=== PATIENT | female | born 1995 | race Caucasian/White ===

== ENCOUNTER 2022-03-28 18:18 | Emergency (ER) | payer OTHER, SELFPAY ==
[2022-03-28 18:50] VITALS: BP 129/87; PULSE 90; RESP 16; TEMP 37.1; O2SAT 99; BMI 35.5
--- NOTE | 2022-03-28 19:23 | DI.US.S_ITS ---
PROCEDURE: US ABDOMEN LIMITED INDICATIONS: RUQ abd pain TECHNIQUE: Real-time focused scanning was performed of the abdomen, with image documentation. COMPARISON: None. FINDINGS: Liver is normal in size measuring 13.9 cm with mild appearance of steatosis. Gallbladder demonstrates a focus non mobile echogenicity at the neck measuring 13 x 8 mm. There are 2 additional foci of increased echogenicity, demonstrating mobility measuring 9 x 9 mm as well as 10 x 4 mm. Gallbladder wall thickness measures 2 mm. No pericholecystic fluid. Common bile duct measures 4.9 mm IMPRESSION: Cholelithiasis without imaging evidence of cholecystitis. There is an additional focus of non mobile echogenicity which could represent adherent stone, sludge or potential polyp. Dictated by: Sarai Cox M.D. on 03/28/2022 at 20:18 Approved by: Sarai Cox M.D. on 03/28/2022 at 20:20
--- NOTE | 2022-03-28 20:36 | ED_ITS ---
HPI - Abdominal Pain General Chief Complaint: Abdominal Pain Stated Complaint: RT. ABD. PAIN Time Seen by Provider: 03/28/22 20:35 Source: patient Mode of arrival: Ambulatory History of Present Illness HPI narrative: 26-year-old female nonsmoker without chronic medical history presents with her in the chief complaint of severe right upper quadrant pain over the course of the past day or 2. She states that she is had a somewhat decreased appetite and some episodes of nausea and vomiting over the course of the week as well. A week or 2 ago she had more classic upper respiratory symptoms with runny nose, nasal congestion and occasional cough, she also had some loose stools but seems to think that has resolved. She denies any history of the same. She states it seems to be worse when she moves and improves with rest. She has had no abdominal surgeries. Her last menstrual cycle was a few days ago. Related Data Previous Rx's Medication Instructions Recorded clotrimazole 1 % topical cream 1 gm topical BID ##14.1 02/19/17 amoxicillin 875 mg-potassium 875 mg PO BID #20 tabs 04/13/17 clavulanate 125 mg tablet (Augmentin) hydrocodone 5 mg-acetaminophen 325 1 tab PO Q4-6H PRN pain #10 tabs 03/28/22 mg tablet ondansetron 4 mg disintegrating 4 mg PO TID-QID PRN nausea and 03/28/22 tablet vomiting #10 tabs Allergies Allergy/AdvReac Type Severity Reaction Status Date / Time iodine [IODINE] Allergy Unknown Verified 03/28/22 20:46 venom-honey bee Allergy Unknown Verified 03/28/22 20:46 [bee venom (honey bee)] Review of Systems Review of Systems Narrative: GENERAL: Denies chills, fatigue, malaise, fever, sweats. HEENT: Denies sinus pain, ear pain, sore throat, difficulty swallowing, dizziness. RESPIRATORY: Denies dyspnea, cough, wheezing, hemoptysis, sputum. CARDIOVASCULAR: Denies chest pain, palpitations, orthopnea, edema, GASTROINTESTINAL: See HPI : Denies dysuria, frequency, incontinence, hematuria, urinary retention. MUSCULOSKELETAL: denies weakness, joint pain, or bony pain SKIN: Denies rash, skin lesions, or other NEUROLOGIC: Denies weakness, headache, numbness, change in speech, confusion, seizures, incoordination. PSYCHIATRIC: No concerning psychosocial issues. 12 point review of systems is negative except for those stated above Patient History Social History Smoking Status: Never smoker Smoking Status: Never smoker Substance Use Type: does not use Exam Narrative Exam Narrative: GENERAL: [26] year old patient appears stated age. Well-developed patient, in mild distress. HEAD: Atraumatic. Normocephalic. EYES: Pupils equal round and reactive. Extraocular motions intact. No scleral icterus. No injection or drainage. ENT: Nose without bleeding, purulent drainage. Throat without erythema, tonsillar hypertrophy or exudate. Airway patent. NECK: Trachea midline. Non tender CARDIOVASCULAR: Regular rate and rhythm without murmurs, gallops, or rubs. RESPIRATORY: Clear to auscultation. Breath sounds equal bilaterally. No wheezes, rales, or rhonchi. GASTROINTESTINAL: Abdomen soft, tender in the epigastrium and more so in the right upper quadrant, nondistended. Bowel sounds present EXTREMITIES: No edema or joint tenderness. BACK: Nontender without deformity or crepitance. No flank tenderness. NEURO: AOx3. SKIN: No rash or erythema of visible areas Initial Vital Signs Initial Vital Signs: Vital Signs Temperature 98.8 F 03/28/22 18:50 Pulse Rate 90 03/28/22 18:50 Respiratory Rate 16 03/28/22 18:50 Blood Pressure 129/87 03/28/22 18:50 Pulse Oximetry 99 03/28/22 18:50 Oxygen Delivery Method 03/28/22 18:50 Course Orders Ordered: Discontinued Medications Hydrocodone Bitart/Acetaminophen (Hydrocodone/Acet 5/325 Prepack) 1 bottle MISC SEEINSTR ONE Stop: 03/28/22 22:39 Last Admin: 03/28/22 22:48 Dose: 1 bottle Documented By: ESTEFANÍA Sodium Chloride (Normal Saline 0.9%) 1,000 mls @ 1,000 mls/hr IV BOLUS ONE Stop: 03/28/22 21:42 Last Infusion: 03/28/22 22:38 Dose: 0 mls/hr Documented By: Admin: 03/28/22 21:08 Dose: 1,000 mls/hr Documented By: ESTEFANÍA Ondansetron HCl (Ondansetron 4 Mg/2 Ml Inj) 4 mg IV NOW ONE Stop: 03/28/22 20:44 Last Admin: 03/28/22 21:08 Dose: 4 mg Documented By: ESTEFANÍA Ondansetron HCl (Ondansetron 4 Mg Odt Prepack) 1 bottle MISC SEEINSTR ONE Stop: 03/28/22 22:39 Last Admin: 03/28/22 22:48 Dose: 1 bottle Documented By: ESTEFANÍA Pantoprazole Sodium (Pantoprazole 40 Mg Vial) 40 mg IV NOW ONE Stop: 03/28/22 20:44 Last Admin: 03/28/22 21:08 Dose: 40 mg Documented By: ESTEFANÍA Vital Signs Vital signs: Vital Signs - 8 hr 03/28/22 18:50 Temperature 98.8 F Pulse Rate 90 Respiratory Rate 16 Blood Pressure 129/87 Pulse Oximetry 99 Oxygen Delivery Method Room Air MDM - Abdominal Pain Lab Data Result diagrams: 03/28/22 20:56 03/28/22 20:56 Labs: Lab Results 03/28/22 03/28/22 03/28/22 Range/Units 20:30 20:56 20:56 WBC 6.8 (4.5-11.0) X10^3/uL RBC 5.30 H (4.0-5.2) X10^6/uL Hgb 15.2 (12.0-16.0) g/dL Hct 44.9 (36-46) % MCV 84.7 (80-100) fL MCH 28.7 (26-34) PG MCHC 33.8 (30-36) % RDW 13.4 (11.6-14.8) % Plt Count 408 H (150-400) X10^3/uL Neut % (Auto) 41.3 L (50-75) % Lymph % (Auto) 43.2 H (25-40) % [place] % (Auto) 10.6 (3-14) % Eos % (Auto) 3.9 (2-4) % Baso % (Auto) 1.0 (0-2) % Neut # (Auto) 2800 (2917-1357) /uL Lymph # (Auto) 2900 (0706-5717) /uL [place] # (Auto) 700 (0-900) /uL Eos # (Auto) 300 (0-450) /uL Baso # (Auto) 100 (0-100) /uL Sodium 141 (137-145) mmol/L Potassium 4.0 (3.4-5.1) mmol/L Chloride 107 (98-107) mmol/L Carbon Dioxide 22 (22-32) mmol/L BUN 7 (7-17) mg/dL Creatinine 0.71 (0.52-1.04) mg/dL Estimated GFR > 60 (>60) mL/min BUN/Creatinine Ratio 9.9 (6-22) Glucose 91 (70-100) mg/dL Calcium 8.9 (8.4-10.2) mg/dL Total Bilirubin 0.5 (0.2-1.3) mg/dL AST 26 (14-36) IU/L ALT 40 H (<35) IU/L Alkaline Phosphatase 56 (38-126) U/L Total Protein 8.2 (6.3-8.2) g/dL Albumin 4.3 (3.5-5.0) g/dL Globulin 3.9 (1.7-4.1) g/dL Albumin/Globulin Ratio 1.1 (1.0-2.8) Lipase 68 (23-300) U/L Urine RBC 0-1/hpf (0-5/HPF) Urine WBC None seen (0-5/HPF) Ur Squamous Epith Cells 1-5 /hpf (0-5/HPF) Calcium Oxalate Crystal Few H Urine Bacteria Few (2-10) H (None) Ur Culture Indicated? Cult not indicated Point of care testing: Point of Care Testing Test Results Negative Urine Dip Bedside Urine Glucose Negative Bedside Urine Bilirubin - Negative Bedside Urine Ketone - Negative Urine Specific [place] 1.030 Bedside Urine Occult Blood +++ Bedside Urine pH 5.5 Bedside Urine Protein - Negative Bedside Urine Urobilinogen - Negative Bedside Urine Nitrite - Negative Bedside Urine Leukocytes - Negative Esterase Imaging Data US - abdomen: Radiologist's Impression: [address] [address] Ultrasound Report Signed Patient: Tory Harvey MR#: [id number] : 1995 Acct:[id number] Age/Sex: 26 / F Date of Service: 03/28/22 Loc: ED Accession Number: [id number] ?? Procedure: US abdomen limited Ordering Provider: Maribel Brown D.O. PROCEDURE: US ABDOMEN LIMITED ? INDICATIONS:? RUQ abd pain ? TECHNIQUE:? Real-time focused scanning was performed of the abdomen, with image documentation.? ? COMPARISON:? None. ? FINDINGS:? Liver is normal in size measuring 13.9 cm with mild appearance of steatosis.? Gallbladder demonstrates a focus non mobile echogenicity at the neck measuring 13 x 8 mm. ?There are 2 additional foci of increased echogenicity, demonstrating mobility measuring 9 x 9 mm as well as 10 x 4 mm.? Gallbladder wall thickness measures 2 mm.? No pericholecystic fluid.? Common bile duct measures 4.9 mm? ? IMPRESSION:? ? Cholelithiasis without imaging evidence of cholecystitis.? There is an additional focus of non mobile echogenicity which could represent adherent stone, sludge or potential polyp.? ? ? Dictated by: Sarai Cox M.D. on 03/28/2022 at 20:18 ? ? Approved by: Sarai Cox M.D. on 03/28/2022 at 20:20 ? Discharge Plan Departure Patient Disposition: Home Clinical Impression: Gallbladder pain, Abdominal pain Instructions: DI for Abdominal Pain-Adult Activity Restrictions/Additional Instructions: *You have been diagnosed with [abdominal pain] * As we discussed your history and physical exam as well as labs and imaging are very reassuring. There is no evidence of any severe diagnoses that would require a specific or immediate intervention. *What to do: *Please continue to take your regular medications as directed. [x ] New medication prescriptions sent to your pharmacy: [ [facility] in [place]] *Please follow up with your primary care provider in 2-3 days, call for an appointment. Let them know you were seen in the Emergency Department and that we ask that you be seen in follow up. We will electronically transmit a record of today's note if your PCP is in our system *Please consider a clear liquid diet for the next 24-48 hours and then slowly advance to regular as tolerated. Also, try to avoid alcohol, nicotine, caffeine, spicy, acidic or fatty foods as this may worsen your symptoms *If you do not have a primary care provider please contact the [facility] Resource line at [phone]. They will ask some questions about your medical history and help get you set up with a doctor in the community. *Return to Emergency Department if you should have any new, worsening or concerning symptoms, such as [fever greater than 101 F, shaking chills, worsening pain, persistent vomiting or other bothersome symptoms] Prescriptions: New hydrocodone-acetaminophen 5-325 mg tablet 1 tab PO Q4-6H PRN (Reason: pain) Qty: 10 0RF ondansetron 4 mg tablet,disintegrating 4 mg PO TID-QID PRN (Reason: nausea and vomiting) Qty: 10 0RF No Action clotrimazole 1 % cream 1 gm Topical BID Qty: 14.1 0RF amoxicillin-pot clavulanate [Augmentin] 875 MG/125 MG tablet 875 mg PO BID Qty: 20 0RF Referrals: Nadine Greer MD [Physician] - Visit Report Forms: Patient Portal/API
[2022-03-28 21:05] LABS: Add Manual Diff / Slide Review NO; Basophils Absolute Auto 100 /uL (0-100); Eosinophils Absolute Auto 300 /uL (0-450); Eosinophils Percent Auto 3.9 % (2-4); Hematocrit 44.9 % (36-46); Hemoglobin 15.2 g/dL (12.0-16.0); Lymphocytes Absolute Auto 2900 /uL (1100-4500); Lymphocytes Percent Auto 43.2 % (25-40); Mean Corpuscular HGB Conc 33.8 % (30-36); Mean Corpuscular Hemoglobin 28.7 PG (26-34); Mean Corpuscular Volume 84.7 fL (80-100); Monocytes Absolute Auto 700 /uL (0-900); Monocytes Percent Auto 10.6 % (3-14); Neutrophils Absolute Auto 2800 /uL (1500-7000); Neutrophils Percent Auto 41.3 % (50-75); Platelet Count 408 X10^3/uL (150-400); Red Cell Distribution Width 13.4 % (11.6-14.8); White Blood Cell Count 6.8 X10^3/uL (4.5-11.0)
[2022-03-28] MEDS: SODIUM CHLORIDE 0.9% 1,000 ML 1000 ML IV (21:08)
[2022-03-28] MEDS: ONDANSETRON 4 MG/2 ML INJ IV (21:08)
[2022-03-28] MEDS: PANTOPRAZOLE 40 MG VIAL IV (21:08)
[2022-03-28 21:21] LABS: Bacteria Urine Few (2-10); Calcium Oxalate Crystals Urine Few; Culture Indicated Urine Cult Not Indicated; RBC Urine 0-1/HPF (0-5/HPF); Squamous Epithelial Cell Urine 1-5 /HPF (0-5/HPF); WBC Urine None Seen (0-5/HPF)
[2022-03-28 21:22] LABS: Alanine Aminotransferase 40 IU/L (<35); Albumin 4.3 g/dL (3.5-5.0); Albumin Globulin Ratio 1.1 (1.0-2.8); Alkaline Phosphatase 56 U/L (38-126); Aspartate Aminotransferase 26 IU/L (14-36); BUN Creatinine Ratio 9.9 (6-22); Bilirubin Total 0.5 mg/dL (0.2-1.3); Blood Urea Nitrogen 7 mg/dL (7-17); Calcium 8.9 mg/dL (8.4-10.2); Carbon Dioxide 22 mmol/L (22-32); Chloride 107 mmol/L (98-107); Estimated Glomerular Filt Rate > 60 mL/min (>60); Globulin 3.9 g/dL (1.7-4.1); Glucose 91 mg/dL (70-100); HEMOLYSIS 17 (0-50); Lipase 68 U/L (23-300); Sodium 141 mmol/L (137-145); Total Protein 8.2 g/dL (6.3-8.2)
--- NOTE | 2022-03-28 21:24 | DI.CT.S_ITS ---
PROCEDURE: CT KIDNEY URETER BLADDER (KUB) INDICATIONS: RUQ and R flank pain, hematuria, ca+ oxalate in urine TECHNIQUE: Axial sections were acquired from the lung bases to the pubic symphysis. Coronal and sagittal reformats were performed. For radiation dose reduction, the following was used: automated exposure control, adjustment of mA and/or kV according to patient size. COMPARISON: [facility], , US ABDOMEN LIMITED, 03/28/2022, 19:47. FINDINGS: Image quality: Excellent. Lung bases: Unremarkable. Heart: No significant findings. URINARY: Right Kidney: No stones or hydronephrosis. Right Ureter: No hydroureter. Left Kidney: No stones or hydronephrosis. Left Ureter: No hydroureter. Bladder: Normal wall thickness. No stones. ABDOMEN: Liver: Unremarkable. Gallbladder: Luminal stone is present without wall thickening, better appreciated recent ultrasound. Biliary ducts: Unremarkable. Pancreas: Unremarkable. Spleen: Unremarkable. Adrenal Glands: Unremarkable. Stomach and Bowel: Stomach, small bowel loops, and colon are unremarkable. Appendix is normal. Peritoneum: No abnormal intraperitoneal fluid. No free air. Ventral Wall: No hernia. Abdominal Nodes: No enlarged retroperitoneal or mesenteric lymph nodes. Vessels: Aorta and inferior vena cava are normal in size. PELVIS: Pelvic Organs: Unremarkable. Pelvic Nodes: Unremarkable. Miscellaneous: No inguinal hernias are seen. Bones: Unremarkable. IMPRESSION: No renal, ureteral or bladder calculi. Cholelithiasis without imaging evidence of cholecystitis. Dictated by: Sarai Cox M.D. on 03/28/2022 at 22:14 Approved by: Sarai Cox M.D. on 03/28/2022 at 22:15
[2022-03-28 21:35] VITALS: PULSE 81; O2SAT 99
[2022-03-28 21:36] VITALS: BP 111/65; PULSE 77; O2SAT 99
[2022-03-28 22:06] VITALS: PULSE 80; O2SAT 98
[2022-03-28 22:07] VITALS: BP 109/70; PULSE 73; O2SAT 98
[2022-03-28 22:30] VITALS: BP 106/64; PULSE 75; O2SAT 96
[2022-03-28] MEDS: ONDANSETRON 4 MG ODT PREPACK 1 BOTTLE MISC (22:48)
[2022-03-28] MEDS: HYDROCODONE/ACET 5/325 PREPACK 1 BOTTLE MISC (22:48)
== END 2022-03-28 22:54 | disposition home or self-care (01) ==
PROVIDERS: Emergency Provider Emergency Medicine; Family Provider Family Medicine
DX: K82.9 Disease of gallbladder, unspecified (principal); R10.10 Upper abdominal pain, unspecified; R11.2 Nausea with vomiting, unspecified
CPT/HCPCS: 36415; 74176; 76705; 80053; 81003; 81015; 81025; 83690; 85025; 93005; 96361; 96374; 96375; 99284; C9113; J2405

== ENCOUNTER 2022-05-13 12:17 | Day surgery (SDC) | payer OTHER, SELFPAY ==
[2022-05-11 07:48] VITALS: BMI 34.4
--- NOTE | 2022-05-13 | PATH_ITS ---
[facility] Accession Number: [id number] No. of containers..01 Tissue . 01 Material submitted: . gallbladder - GALLBLADDER . 01 Diagnosis: Gallbladder, Cholecystectomy: Cholelithiasis, cholesterolosis, and changes consistent with chronic cholecystitis. Negative for dysplasia and neoplasia. MRV 05/19/2022 1441 Local . 01 Electronically signed: . Nadine Mena MD, Pathologist NPI- [id number] . 01 Gross description: . The specimen is received in formalin labeled with the patient's name, , and gallbladder, and consists of an intact gallbladder measuring 6.2 x 2.4 x 2.1 cm. The serosa is smooth and congested. The hepatic surface is rough and unremarkable. The cystic duct is received closed with a clamp, is inked blue, and no pericystic lymph node is identified. The lumen is filled with dark green mucoid bile. Two yellow bossellated calculi are identified ranging from 1.0 cm to 1.5 cm in greatest dimension, not grossly obstructing the cystic duct. The mucosa is dark green and velvety with numerous pinpoint yellow areas of discoloration consistent with cholesterol. No polyps or lesions are identified. The patel average 0.3 cm thick. Watch Caser sections to include the cystic duct margin and full-thickness sections are submitted in cassette A1. ([id number]) /FRR 05/14/2022 1623 Local . 01 Pathologist provided ICD-10: K80.50 . 01 CPT . 812867 Specimen Comment: A courtesy copy of this report has been sent to [phone] Performed at: 01 [facility] [address] [place] [address], [place], [place] [id number] MD Chad Victor MD Phone: [phone]
[2022-05-13] MEDS: LACTATED RINGERS 1,000 ML 100 ML IV ×2 (12:50→15:02)
[2022-05-13 12:51] VITALS: BP 129/77; PULSE 84; RESP 16; TEMP 36.6; O2SAT 99; BMI 34.4
--- NOTE | 2022-05-13 13:51 | PM.PREOP ---
Pre-operative Note Interval Note History & Physical reviewed/Exam performed by Physician: Yes Changes to H&P: No
--- NOTE | 2022-05-13 13:51 | PM.OP.1 ---
Operative Date/Time/Diagnoses Date of procedure: 05/13/22 Time of procedure: 13:51 Pre-op diagnosis: Biliary colic Post-op diagnosis: same Procedure & Clinicians Procedure: Laparoscopic cholecystectomy Same procedure as scheduled: Yes Indications: 26-year-old woman with symptoms and radiographic findings consistent with biliary colic Surgeon: Adama Ferrer Anesthesia Type: General Operative Notes Findings: Cholelithiasis no evidence of acute cholecystitis. Critical view of safety established. Specimen(s): other (Gallbladder) Estimated Blood Loss (mL): 20 Procedure in detail: The patient was placed supine on the table and bilateral lower extremity compression devices were applied. Anesthesia was induced they were intubated with an endotracheal tube and received 2g of Ancef. A time-out was performed. They were prepped and draped in sterile fashion. An infraumbilical incision was made. The fascia was elevated incised and the abdomen was entered atraumatically. A blunt tip 12mm balloon trocar was then inserted, pneumoperitoneum was established and inspection of the abdomen demonstrated no evidence of injury. They were placed head up and right side up and then a 11 mm port was placed high in the epigastrium and two 5mm in the right upper quadrant. The gallbladder was grasped by the fundus and retracted over the liver and retracted laterally by the infundibulum. Using electrocautery the lateral plane between the gallbladder and the liver was opened towards the fundus. The gallbladder was then retracted laterally and the medial plane was developed in the same manner. With the gallbladder mobilized the bottom of the cystic plate was visualized. The hepatocystic triangle was meticulosly skeletonized with blunt dissection of fat and fibrous tissue from both the front and the back. Only two structures were then clearly seen entering the gallbladder the cystic duct and the cystic artery. With the critical view of safety fully established the cystic duct was clipped twice proximally and once distally using the 10 mm Weck hemoclip applied under direct visualization and then sharply divided. The cystic artery was divided in the same fashion. The gallbladder was removed from the liver bed using electro cautery. The liver bed was then inspected for hemostasis and this was achieved. The abdomen was irrigated with sterile saline and inspection was made that showed the clips in good position. The specimen was removed using Endo-Catch. The abdomen was desufflated. The umbilical fascia was closed with 0 Vicryl in a [id number] fashion under direct visualization. Skin incisions were irrigated and closed with 4-0 Monocryl. 30 ml of 0.25% bupivacaine was infiltrated into the subcutaneous tissue of the incisions. The wounds were sealed with Dermabond. Patient emerged from anesthesia was extubated and transferred to recovery in stable condition. The sponge and instrument count at the end of the operation was correct. Complications: none Post-operative Condition: stable Disposition: same day surgery
[2022-05-13] MEDS: CEFAZOLIN 2 GM/100 ML PREMIX 100 ML IV (14:28)
[2022-05-13] MEDS: BUPIVACAINE 0.5% W/ EPI (PF) 30 ML VIAL INJ (14:36)
--- NOTE | 2022-05-13 14:43 | SUR.OPER ---
Supine on padded OR bed, head on pillow, safety belt at thigh, left arm padded and tucked at side. Right arm secured on padded arm board <90 degrees abduction. Legs uncrossed. Padded footboard in place. Tape over blanket to secure lower legs. Pt positioned per direction and supervision of Dr Ferrer.
[2022-05-13 15:29] VITALS: BP 153/92; PULSE 121; RESP 22; TEMP 36.2; O2SAT 100
[2022-05-13 15:35] VITALS: BP 158/88; PULSE 108; RESP 18; O2SAT 100
[2022-05-13] MEDS: METOCLOPRAMIDE 10 MG/2 ML INJ IV (15:50)
[2022-05-13] MEDS: OXYCODONE IR 5 MG TABLET PO (15:58)
[2022-05-13 15:59] VITALS: BP 122/76; PULSE 66; RESP 12; TEMP 36.6; O2SAT 100
[2022-05-13 16:07] VITALS: BP 119/75; PULSE 66; RESP 12; TEMP 36.2; O2SAT 99
== END 2022-05-13 16:36 | disposition home or self-care (01) ==
PROVIDERS: Family Provider Family Medicine; PCP Family Medicine; Referring Provider Surgery; Visit Provider Surgery
PROC: 0FT44ZZ Resection of Gallbladder, Percutaneous Endoscopic Approach (ICD-10-PCS; CPT 47562; principal; 2022-05-13 14:00)
DX: K80.20 Calculus of gallbladder without cholecystitis without obstruction (principal)
CPT/HCPCS: 47562; 81025; 82962; J0330; J0690; J1170; J1885; J2250; J2405; J2704; J2765; J3010

== ENCOUNTER → 2022-10-28 10:48 | Outpatient (CLI) | payer OTHER, SELFPAY ==
[2022-10-28 11:23] LABS: Add Manual Diff / Slide Review NO; Basophils Absolute Auto 100 /uL (0-100); Eosinophils Absolute Auto 100 /uL (0-450); Hematocrit 42.6 % (36-46); Hemoglobin 14.6 g/dL (12.0-16.0); Lymphocytes Absolute Auto 1800 /uL (1100-4500); Lymphocytes Percent Auto 31.9 % (25-40); Mean Corpuscular HGB Conc 34.2 % (30-36); Mean Corpuscular Hemoglobin 29.3 PG (26-34); Mean Corpuscular Volume 85.6 fL (80-100); Monocytes Absolute Auto 400 /uL (0-900); Neutrophils Absolute Auto 3300 /uL (1500-7000); Neutrophils Percent Auto 59.1 % (50-75); Platelet Count 426 X10^3/uL (150-400); Red Blood Cell Count 4.98 X10^6/uL (4.0-5.2); Red Cell Distribution Width 13.5 % (11.6-14.8); White Blood Cell Count 5.6 X10^3/uL (4.5-11.0)
[2022-10-28 12:03] LABS: Alanine Aminotransferase 42 IU/L (<35); Albumin 4.6 g/dL (3.5-5.0); Albumin Globulin Ratio 1.2 (1.0-2.8); Alkaline Phosphatase 69 U/L (38-126); Aspartate Aminotransferase 35 IU/L (14-36); BUN Creatinine Ratio 10.6 (6-22); Bilirubin Total 1.1 mg/dL (0.2-1.3); Blood Urea Nitrogen 9 mg/dL (7-17); Calcium 9.1 mg/dL (8.4-10.2); Carbon Dioxide 26 mmol/L (22-32); Chloride 103 mmol/L (98-107); Estimated Glomerular Filt Rate > 60 mL/min (>60); Globulin 3.9 g/dL (1.7-4.1); Glucose 87 mg/dL (70-100); HEMOLYSIS < 15 (0-50); Potassium 4.1 mmol/L (3.4-5.1); Sodium 137 mmol/L (137-145); Total Protein 8.5 g/dL (6.3-8.2)
== END ==
PROVIDERS: Family Provider Family Medicine; PCP Family Medicine; Referring Provider Surgery; Visit Provider Surgery
DX: R10.9 Unspecified abdominal pain (principal)
CPT/HCPCS: 36415; 80053; 85025

== ENCOUNTER → 2022-11-02 15:35 | Outpatient (CLI) | payer OTHER, SELFPAY ==
--- NOTE | 2022-11-02 15:36 | DI.US.S_ITS ---
PROCEDURE: US ABDOMEN COMPLETE INDICATIONS: Abdominal pain TECHNIQUE: Real-time scanning was performed of the abdominal and retroperitoneal organs, with image documentation. COMPARISON: [facility], , US ABDOMEN LIMITED, 03/28/2022, 19:47. FINDINGS: Liver: Liver is normal in size and homogeneous in echotexture. Gallbladder: Surgically absent Biliary ducts: Intrahepatic bile ducts are non-dilated. Extrahepatic bile duct caliber measures for mm. Normal is 6-7 mm or less in diameter, or 10 mm or less post-cholecystectomy. Pancreas: Visualized portions of the pancreas are sonographically normal. Spleen: Spleen is normal in size and homogeneous in echotexture. Kidneys: Kidneys are normal in size and echotexture. Right kidney measures 11.7 cm long; left kidney measures 11.0 cm long. No hydronephrosis or nephrolithiasis. No solid masses. Aorta: Visualized aorta is normal in caliber at less than 3 cm. Iliacs: Not visualized. IVC: Intrahepatic inferior vena cava is patent. Miscellaneous: No free abdominal fluid. IMPRESSION: 1. Unremarkable abdominal ultrasound. Dictated by: Belia Anderson M.D. on 11/02/2022 at 16:58 Approved by: Belia Anderson M.D. on 11/02/2022 at 16:58
== END ==
PROVIDERS: Family Provider Family Medicine; PCP Family Medicine; Referring Provider Surgery; Visit Provider Surgery
DX: R10.11 Right upper quadrant pain (principal); Z90.49 Acquired absence of other specified parts of digestive tract
CPT/HCPCS: 76700

== ENCOUNTER → 2022-12-08 10:30 | Outpatient (CLI) | payer OTHER, SELFPAY ==
[2022-12-08 11:09] LABS: Add Manual Diff / Slide Review NO; Basophils Absolute Auto 100 /uL (0-100); Basophils Percent Auto 1.3 % (0-2); Eosinophils Absolute Auto 100 /uL (0-450); Eosinophils Percent Auto 1.6 % (2-4); Hematocrit 42.7 % (36-46); Hemoglobin 14.6 g/dL (12.0-16.0); Lymphocytes Absolute Auto 1900 /uL (1100-4500); Lymphocytes Percent Auto 36.7 % (25-40); Mean Corpuscular HGB Conc 34.2 % (30-36); Mean Corpuscular Hemoglobin 29.5 PG (26-34); Mean Corpuscular Volume 86.3 fL (80-100); Monocytes Absolute Auto 400 /uL (0-900); Monocytes Percent Auto 7.3 % (3-14); Neutrophils Absolute Auto 2800 /uL (1500-7000); Neutrophils Percent Auto 53.1 % (50-75); Platelet Count 390 X10^3/uL (150-400); Red Blood Cell Count 4.95 X10^6/uL (4.0-5.2); Red Cell Distribution Width 13.4 % (11.6-14.8); White Blood Cell Count 5.3 X10^3/uL (4.5-11.0)
[2022-12-08 11:22] LABS: Alanine Aminotransferase 59 IU/L (<35); Albumin 4.5 g/dL (3.5-5.0); Albumin Globulin Ratio 1.2 (1.0-2.8); Alkaline Phosphatase 49 U/L (38-126); Aspartate Aminotransferase 40 IU/L (14-36); BUN Creatinine Ratio 8.9 (6-22); Blood Urea Nitrogen 7 mg/dL (7-17); Calcium 8.8 mg/dL (8.4-10.2); Carbon Dioxide 24 mmol/L (22-32); Chloride 103 mmol/L (98-107); Estimated Glomerular Filt Rate > 60 mL/min (>60); Globulin 3.9 g/dL (1.7-4.1); Glucose 94 mg/dL (70-100); Potassium 4.4 mmol/L (3.4-5.1); Sodium 137 mmol/L (137-145); Total Protein 8.4 g/dL (6.3-8.2)
[2022-12-08 11:24] LABS: HEMOLYSIS 54 (0-50)
== END ==
PROVIDERS: Family Provider Family Medicine; PCP Family Medicine; Referring Provider Registered Nurse; Visit Provider Registered Nurse
DX: R11.2 Nausea with vomiting, unspecified (principal)
CPT/HCPCS: 36415; 80053; 85025

== ENCOUNTER → 2023-02-08 17:47 | Outpatient (CLI) | payer OTHER, SELFPAY ==
[2023-02-08 18:35] LABS: Influenza A - CEPHEID Flu A NEGATIVE (NEGATIVE); Influenza B - CEPHEID Flu B NEGATIVE (NEGATIVE); Respiratory Syncytial Virus Negative (Negative)
[2023-02-08 19:45] LABS: COVID-19 CEPHEID 4-PLEX PCR Negative (Negative)
== END ==
PROVIDERS: Family Provider Family Medicine; PCP Family Medicine; Visit Provider Nurse Practitioner Family
DX: J02.9 Acute pharyngitis, unspecified (principal)
CPT/HCPCS: 0241U; 87070

== ENCOUNTER → 2023-04-10 10:24 | Outpatient (CLI) | payer OTHER, SELFPAY ==
[2023-04-10 14:18] LABS: Appearance Urine UA CLEAR; Bilirubin Urine UA NEGATIVE (NEGATIVE); Color Urine UA YELLOW; Glucose Urine UA NEGATIVE (Negative); Ketones Urine UA NEGATIVE (NEGATIVE); Leukocyte Esterase Urine UA 1+ (NEGATIVE); Nitrite Urine UA NEGATIVE (Negative); Occult Blood Urine UA NEGATIVE (Negative); Protein Urine UA NEGATIVE (Negative); Specific Gravity Urine UA 1.015 (1.000-1.035); Urobilinogen Urine UA 0.2 E.U./dL (0.2)
[2023-04-10 14:30] LABS: Bacteria Urine None Seen; RBC Urine None Seen (0-5/HPF); Squamous Epithelial Cell Urine 0-1 /HPF (0-5/HPF); WBC Urine 5-10/HPF (0-5/HPF)
[2023-04-11 09:12] LABS: Varicella IgG Antibody 462 index (Immune >165)
[2023-04-11 20:06] LABS: HIV 1 & 2 Ab/Ag 4th Gen Combo NEGATIVE (NEGATIVE); Hep C Virus Ab w/Reflex Quant NEGATIVE s/c (NEGATIVE)
== END ==
PROVIDERS: Family Provider Family Medicine; PCP Family Medicine; Referring Provider Family Medicine; Visit Provider Family Medicine
DX: Z34.00 Encounter for supervision of normal first pregnancy, unspecified trimester (principal)
CPT/HCPCS: 36415; 81003; 81015; 86787; 86803; 86850; 86900; 86901; 87086; 87389

== ENCOUNTER → 2023-05-22 06:44 | Outpatient (CLI) | payer OTHER, SELFPAY ==
--- NOTE | 2023-05-22 06:46 | DI.US.S_ITS ---
PROCEDURE: US OB >= 14 WEEKS FETUS INDICATIONS: 20 WEEK ANATOMY OUTSIDE/PRIOR DATING DATA: Last menstrual period (LMP): Not reported. LMP-based estimated date of delivery (ERIC): 10/10/2023. The calculations are made using the clinical ERIC of 10/10/2023. TECHNIQUE: Real-time scanning was performed of the fetus, with image documentation and biometric measurements. Endovaginal scanning: Not performed COMPARISON: None. FINDINGS: General: A single living intrauterine gestation is present. Presentation: Breech. Placenta: Placental position is fundal , without previa. Amniotic fluid index: 14.1 cm, normal range is 5-24 cm. Single deepest vertical pocket is 4.0 cm. heart rate: 141 beats per minute. Maternal cervical canal: 4.9 cm long. Normal lower limit is 2.5 cm. biometrics: Biparietal diameter: 4.7 centimeters, 20 weeks 1 day Head circumference: 17.8 centimeters, 20 weeks 2 days Abdominal circumference: 15.7 centimeters, 20 weeks 6 days Femur length: 3.2 centimeters, 20 weeks 0 days Clinically estimated gestational age: 19 weeks 6 days Composite gestational age from present scan: 20 weeks 2 days Estimated weight and percentile: 353 grams, 78th percentile Anatomic survey: Neuro: Ventricles are non-dilated at less than 10 mm. Cisterna magna is normal at 3-11 mm. Cerebellum is normal in size and morphology. Nuchal skin fold: Normal at less than 6 mm between 14-21 weeks gestational age. Face: Not well visualized. Spine: No evidence for spina bifida. Heart: 4-chambered heart is present. Left ventricular outflow tract is normal. Right ventricular outflow tract is not well visualized. Diaphragm: Diaphragm is intact. Stomach: Left-sided stomach is present. Kidneys: No hydronephrosis. Normal is less than 5 mm in 2nd trimester, less than 7 mm in 3rd trimester. Cord: 3-vessel cord has orthotopic insertion. Bladder: Normal in size. Extremities: All 4 extremities identified. IMPRESSION: Single living intrauterine at 19 weeks 6 days, ERIC of 10/10/2023. Estimated weight of 353 grams, 78th percentile. Facial structures and right ventricular outflow tract not well visualized due to early gestation, and lie. Recommend short-term interval follow-up. Otherwise, normal anatomy survey. We strive to produce accurate, complete, and clear reports of imaging services. To assist us in improving patient care, this report was composed using standard report templates and voice recognition software. Therefore, it may contain abnormal punctuation, insertions and/or omissions. Occasional wrong-word or sound-alike substitutions may occur. Though we review the report and make efforts to correct it, we do recommend that the report be read carefully in proper context to recognize any text inaccuracies. Dictated by: Seb Hoffman M.D. on 05/22/2023 at 12:12 Approved by: Seb Hoffman M.D. on 05/22/2023 at 12:15
== END ==
LOC: US 06:45
PROVIDERS: Family Provider Family Medicine; PCP Family Medicine; Referring Provider Family Medicine; Visit Provider Family Medicine
DX: Z34.02 Encounter for supervision of normal first pregnancy, second trimester (principal); Z3A.19 19 weeks gestation of pregnancy
CPT/HCPCS: 76811

== ENCOUNTER → 2023-06-19 06:46 | Outpatient (CLI) | payer OTHER, SELFPAY ==
--- NOTE | 2023-06-19 06:47 | DI.US.S_ITS ---
PROCEDURE: US OB FOLLOW UP INDICATIONS: follow up, growth, unable to see structures OUTSIDE/PRIOR DATING DATA: Last menstrual period (LMP): Not provided. LMP-based estimated date of delivery (ERIC): 10/10/2023. First dating scan (date and location): Not available. Estimated date of delivery (ERIC) from first dating scan: Not available. The calculations are made using the working ERIC of 10/10/2023. TECHNIQUE: Real-time scanning was performed of the fetus, with image documentation and biometric measurements. Endovaginal scanning: Not performed COMPARISON: [facility], OB >= 14 WEEKS FETUS, 05/22/2023, 6:52. FINDINGS: General: A single living intrauterine gestation is present. Presentation: Vertex. Placenta: Placental position is anterior fundal , without previa. Amniotic fluid index: 17.8 cm, normal range is 5-24 cm. Single deepest vertical pocket is 5.1 cm. heart rate: 141 beats per minute. Maternal cervical canal: 4.3 cm long. Normal lower limit is 2.5 cm. biometrics: Not performed Other: Right ventricular outflow tract, face including facial profile are within normal limits.. IMPRESSION: 1. A single living intrauterine gestation redemonstrated. 2. Normal right ventricular outflow tract, face and facial profile. We strive to produce accurate, complete, and clear reports of imaging services. To assist us in improving patient care, this report was composed using standard report templates and voice recognition software. Therefore, it may contain abnormal punctuation, insertions and/or omissions. Occasional wrong-word or sound-alike substitutions may occur. Though we review the report and make efforts to correct it, we do recommend that the report be read carefully in proper context to recognize any text inaccuracies. Dictated by: Karma Moore M.D. on 06/23/2023 at 11:54 Approved by: Karma Moore M.D. on 06/23/2023 at 11:59
== END ==
LOC: US 06:46
PROVIDERS: Family Provider Family Medicine; PCP Family Medicine; Referring Provider Family Medicine; Visit Provider Family Medicine
DX: Z36.2 Encounter for other antenatal screening follow-up (principal)
CPT/HCPCS: 76816

== ENCOUNTER → 2023-07-17 09:30 | Outpatient (CLI) | payer OTHER, SELFPAY ==
[2023-07-17 12:34] LABS: Add Manual Diff / Slide Review NO; Basophils Absolute Auto 0 /uL (0-100); Basophils Percent Auto 0.4 % (0-2); Eosinophils Absolute Auto 100 /uL (0-450); Hematocrit 38.1 % (36-46); Lymphocytes Absolute Auto 2300 /uL (1100-4500); Lymphocytes Percent Auto 24.6 % (25-40); Mean Corpuscular HGB Conc 34.2 % (30-36); Mean Corpuscular Hemoglobin 30.1 PG (26-34); Monocytes Absolute Auto 700 /uL (0-900); Monocytes Percent Auto 7.2 % (3-14); Neutrophils Absolute Auto 6300 /uL (1500-7000); Neutrophils Percent Auto 66.8 % (50-75); Platelet Count 328 X10^3/uL (150-400); Red Blood Cell Count 4.33 X10^6/uL (4.0-5.2); Red Cell Distribution Width 13.7 % (11.6-14.8); White Blood Cell Count 9.4 X10^3/uL (4.5-11.0)
[2023-07-17 13:31] LABS: GTT (PREG) 1 Hour PP 50gm Dose 95 mg/dL (76-139)
== END ==
LOC: LAB 09:31
PROVIDERS: Family Provider Family Medicine; PCP Family Medicine; Referring Provider Family Medicine; Visit Provider Family Medicine
DX: Z34.00 Encounter for supervision of normal first pregnancy, unspecified trimester (principal)
CPT/HCPCS: 36415; 82950; 85025; 86850

== ENCOUNTER 2023-09-05 12:57 | Observation (INO) | payer OTHER, SELFPAY ==
[2023-09-05] MEDS: LACTATED RINGERS 1,000 ML 1000 ML IV (13:51)
[2023-09-05] MEDS: ONDANSETRON 4 MG/2 ML INJ IV (13:51)
--- NOTE | 2023-09-05 14:45 | PM.OBTRLD ---
Visit Information Visit Information Date of evaluation: 09/05/23 Primary OB Provider: Wendy Walters Comments/Additional reasons for admission: Pt is a 28yo at 35w0d here due to nausea, vomiting, and abdominal cramping. The pt reports that she woke this morning with significant nausea. She had multiple bouts of emesis, and abdominal cramping as well. She has been unable to keep much of anything down. She continues to feel her baby move regularly. No LOF, vaginal bleeding. [facility] Medical History (Updated 09/05/23 @ 15:05 by Wendy Walters MD) Migraine without aura Abdominal pain Biliary colic Right wrist pain (09/14/16) Contusion of right wrist Right wrist sprain Concussion Anesthesia complication Surgical History (Updated 02/20/23 @ 08:09 by Shivani Worley RN) History of cholecystectomy (~05/2022) [place] teeth extracted (~04/2022) H/O right wrist surgery (09/2020) H/O knee surgery (2012) Family History (Updated 02/20/23 @ 08:16 by Shivani Worley RN) Grandfather Hypertension Heart disease Diabetes mellitus Hyperlipidemia Grandmother Hypertension Heart disease Diabetes mellitus Hyperlipidemia Grandmother Cancer History of recurrent miscarriages Grandfather Lung cancer Heavy smoker Aunt Ectopic Social History marital status: details: lives with fiance household members: spouse lives independently: Yes caregiver/support person: No housing: house pets and animals: Yes (dogs, cats) education level: college occupational status: employed current occupational exposures/hazards: Yes (veterinary surgery technician, 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) special alison needs: No travel history: over 6 months ago seatbelt use: always helmet use: Yes water heater temp set < 120 deg: Yes working smoke detector in home: Yes fire extinguisher in home: Yes carbon monox detector in home: Yes firearms in home: Yes firearms unloaded and locked: Yes Smoking Status: Never smoker second hand exposure: No alcohol intake: former substance use type: does not use during the past year weight has: decreased > 10 lbs well-balanced diet: rarely or never daily servings fruits/ve-1 caffeine: Yes (AM cup coffee) Type(s) of exercise: walking and other Evaluation Evaluation Baseline heart rate: 130 Variability: Moderate (11-25) monitor accelerations: Present Monitor Decelerations: Absent Category of Tracing: Reactive Cervical dilation (cm): 0 Cervical effacement (%): 0 station: -1 Diagnosis, Plan/Disposition Final Diagnosis (1) Nausea & vomiting: Status: Acute Plan/Disposition Plan: 28yo at 35w0d here for nausea/vomiting, abdominal cramping. Cramping is improved. Pt received 1L IVF and IV Zofran with improvement in nausea as well. Now tolerating PO. Stable for d/c home. OB Disposition: home
== END 2023-09-05 15:10 | disposition home or self-care (01) ==
PROVIDERS: Admitting Provider Family Medicine; Family Provider Family Medicine; PCP Family Medicine; Referring Provider Family Medicine; Visit Provider Family Medicine
DX: O21.9 Vomiting of pregnancy, unspecified (principal); O26.893 Other specified pregnancy related conditions, third trimester; R10.9 Unspecified abdominal pain; Z3A.35 35 weeks gestation of pregnancy
CPT/HCPCS: 59025; 59050; 96360; G0378; G0379; J2405

== ENCOUNTER 2023-09-11 09:49 | Outpatient (CLI) | payer OTHER, SELFPAY ==
[2023-09-11 10:37] LABS: Appearance Urine UA CLEAR; Bilirubin Urine UA NEGATIVE (NEGATIVE); Color Urine UA YELLOW; Glucose Urine UA NEGATIVE (Negative); Ketones Urine UA NEGATIVE (NEGATIVE); Leukocyte Esterase Urine UA 3+ (NEGATIVE); Nitrite Urine UA NEGATIVE (Negative); Occult Blood Urine UA NEGATIVE (Negative); Protein Urine UA NEGATIVE (Negative); Urobilinogen Urine UA 0.2 E.U./dL (0.2)
[2023-09-11 10:38] LABS: Urine Volume 10mL (spun); pH Urine UA 6.5 (4.5-8.0)
[2023-09-11 10:43] LABS: Bacteria Urine None Seen; Culture Indicated Urine Specimen Cultured; RBC Urine None Seen (0-5/HPF); Squamous Epithelial Cell Urine 1-5 /HPF (0-5/HPF); WBC Urine 5-10/HPF (0-5/HPF)
--- NOTE | 2023-09-11 11:27 | PM.OBTRLD ---
Visit Information Visit Information Date of evaluation: 09/11/23 Primary OB Provider: Wendy Walters Comments/Additional reasons for admission: 28yo at 35w6d here due to lower abdominal pain and sharp pelvic pressure. No vaginal bleeding, LOF. She is feeling her baby move regularly. She does report pressure sensation when urinating. [facility] [place] Medical History (Updated 09/11/23 @ 12:09 by Wendy Walters MD) Migraine without aura Abdominal pain Biliary colic Right wrist pain (09/14/16) Contusion of right wrist Right wrist sprain Concussion Anesthesia complication Surgical History (Updated 02/20/23 @ 08:09 by Shivani Worley RN) History of cholecystectomy (~05/2022) [place] teeth extracted (~04/2022) H/O right wrist surgery (09/2020) H/O knee surgery (2012) Family History (Updated 02/20/23 @ 08:16 by Shivani Worley RN) Grandfather Hypertension Heart disease Diabetes mellitus Hyperlipidemia Grandmother Hypertension Heart disease Diabetes mellitus Hyperlipidemia Grandmother Cancer History of recurrent miscarriages Grandfather Lung cancer Heavy smoker Aunt Ectopic Social History marital status: details: lives with fiance household members: spouse lives independently: Yes caregiver/support person: No housing: house pets and animals: Yes (dogs, cats) education level: college occupational status: employed current occupational exposures/hazards: Yes (recreation assistant, 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) special alison needs: No travel history: over 6 months ago seatbelt use: always helmet use: Yes water heater temp set < 120 deg: Yes working smoke detector in home: Yes fire extinguisher in home: Yes carbon monox detector in home: Yes firearms in home: Yes firearms unloaded and locked: Yes Smoking Status: Never smoker second hand exposure: No alcohol intake: former substance use type: does not use during the past year weight has: decreased > 10 lbs well-balanced diet: rarely or never daily servings fruits/ve-1 caffeine: Yes (AM cup coffee) Type(s) of exercise: walking and other Objective Labs Labs: Laboratory Results - last 24 hr 09/11/23 10:10 Urine Color Yellow Urine Appearance Clear Urine pH 6.5 Ur Specific Reynolds 1.010 Urine Protein Negative Urine Glucose (UA) Negative Urine Ketones Negative Urine Occult Blood Negative Urine Nitrate Negative Urine Bilirubin Negative Urine Urobilinogen 0.2 Ur Leukocyte Esterase 3+ H Urine RBC None seen Urine WBC 5-10/hpf H Ur Squamous Epith Cells 1-5 /hpf Urine Bacteria None seen Ur Culture Indicated? Specimen cultured Vol Urine Centrifuged 10ml (spun) Evaluation Evaluation Baseline heart rate: 130 Variability: Moderate (11-25) monitor accelerations: Present Monitor Decelerations: Absent Diagnosis, Plan/Disposition Final Diagnosis (1) UTI (urinary tract infection): Status: Acute Plan/Disposition Plan: 28yo at 35w6d here due to lower abdominal pain and sharp pelvic pressure. Is having intermittent contractions on monitoring. Urine equivocal, however due to symptoms will treat while awaiting culture results. Cervix 1cm, long, thick. Stable for D/c home. Return precautions discussed. OB Disposition: home
== END 2023-09-11 11:40 | disposition home or self-care (01) ==
LOC: LABOR 11:26 → OB 09-13 08:24
PROVIDERS: Family Provider Family Medicine; PCP Family Medicine; Referring Provider Family Medicine; Visit Provider Family Medicine
DX: O23.43 Unspecified infection of urinary tract in pregnancy, third trimester (principal); Z3A.35 35 weeks gestation of pregnancy
CPT/HCPCS: 59025; 81001; 87086; G0378; G0379

== ENCOUNTER → 2023-09-20 16:03 | Outpatient (CLI) | payer OTHER, SELFPAY ==
[2023-09-21 17:20] LABS: Strep Grp B PCR NEG for Grp B Strep
== END ==
PROVIDERS: Family Provider Family Medicine; PCP Family Medicine; Visit Provider Family Medicine
DX: Z34.00 Encounter for supervision of normal first pregnancy, unspecified trimester (principal)
CPT/HCPCS: 87653

== ENCOUNTER 2023-09-20 22:53 | Outpatient (CLI) | payer OTHER, SELFPAY | END 2023-09-20 23:35 | disposition home or self-care (01) | LOC: OB 09-21 11:57 | PROVIDERS: Family Provider Family Medicine; PCP Family Medicine; Referring Provider Family Medicine; Visit Provider Family Medicine | DX: Z03.71 Encounter for suspected problem with amniotic cavity and membrane ruled out (principal) | CPT/HCPCS: 59025; 84112; 87653; G0378; G0379 ==

== ENCOUNTER 2023-10-16 19:32 | Inpatient (IN) | payer OTHER, SELFPAY ==
[2023-10-16 20:39] VITALS: BP 116/75
[2023-10-16 21:48] LABS: Add Manual Diff / Slide Review NO; Basophils Absolute Auto 0 /uL (0-100); Basophils Percent Auto 0.3 % (0-2); Eosinophils Absolute Auto 100 /uL (0-450); Eosinophils Percent Auto 0.8 % (2-4); Hematocrit 38.2 % (36-46); Hemoglobin 12.9 g/dL (12.0-16.0); Lymphocytes Absolute Auto 2400 /uL (1100-4500); Lymphocytes Percent Auto 30.2 % (25-40); Mean Corpuscular HGB Conc 33.9 % (30-36); Mean Corpuscular Hemoglobin 29.8 PG (26-34); Monocytes Absolute Auto 600 /uL (0-900); Monocytes Percent Auto 7.9 % (3-14); Neutrophils Absolute Auto 4900 /uL (1500-7000); Neutrophils Percent Auto 60.8 % (50-75); Platelet Count 276 X10^3/uL (150-400); Red Blood Cell Count 4.34 X10^6/uL (4.0-5.2); Red Cell Distribution Width 13.8 % (11.6-14.8)
[2023-10-16] MEDS: DINOPROSTONE VAG (CERVIDIL) 10 MG VAG (22:03)
[2023-10-16] MEDS: ZOLPIDEM 5 MG TABLET PO (23:33)
[2023-10-17] MEDS: ONDANSETRON 4 MG/2 ML INJ IV ×3 (04:30→12:24)
[2023-10-17] MEDS: fentaNYL 100 MCG/2 ML INJ 50 MCG IV (12:30)
--- NOTE | 2023-10-17 13:30 | PM.OBHP.IH.1 ---
OB HPI Date/Time Date of admission: 10/16/23 Date Patient Seen: 10/17/23 History of Present Condition Chief complaint: Induction ERIC Calculator Estimated Delivery Date Method Current WG Current Estimate 10/10/23 Manual 41w 0d Final ERIC - REDD Other Estimates 10/10/23 LMP (Certain) 41w 0d 10/12/23 Ultrasound #1 40w 5d Estimated Gestational Age (weeks): 41w0d : 1 Para: 0 Narrative: 28yo at 41w0d here for post-dates IOL. She denies any vaginal bleeding, significant contractions, LOF prior to presentation. Since receiving cervidil last night, she reports frequent contractions. Her has been uncomplicated. care: good care, initiated at week # (9) and pounds weight gain (20) Dating criteria OB: LMP confirmed by 2nd trimester US Ultrasounds: normal 1st trimester US and normal mid trimester US Obstetrical complications: none Medical complications OB: none Indications Indication for induction OB: post dates Preadmission Labs Last OB Lab Results: Blood Type A Positive 10/16/23 21:00 Antibody Screen Negative 10/16/23 21:00 Hct 38.2 % (36-46) 10/16/23 21:00 Hgb 12.9 g/dL (12.0-16.0) 10/16/23 21:00 Hepatitis C Antibody Negative s/c (NEGATIVE) 04/10/23 11:41 VZV IgG Antibody 462 index (Immune >165) 04/10/23 11:41 Glucose 1 Hr 50 gm 95 mg/dL (76-139) 07/17/23 11:25 Group B Strep (PCR) Neg for grp b strep 09/20/23 16:03 -: Urine: negative External Labs -: Urine: negative Evaluation Evaluation Baseline heart rate: 135 Variability: Moderate (11-25) monitor accelerations: Present Monitor Decelerations: Absent Contraction Frequency (minutes): 3 Uterine Contraction Intensity: Moderate Status: Category l Dilation (cm): 1 Effacement (%): 40 Dilation: 1-2 cm Effacement: 40-50% station: -3 Position of cervix: posterior Consistency: soft Aldridge score: 4 [facility] Medical History (Updated 09/11/23 @ 12:09 by Wendy Walters MD) Migraine without aura Abdominal pain Biliary colic Right wrist pain (09/14/16) Contusion of right wrist Right wrist sprain Concussion Anesthesia complication Surgical History (Updated 02/20/23 @ 08:09 by Shivani Worley RN) History of cholecystectomy (~05/2022) [place] teeth extracted (~04/2022) H/O right wrist surgery (09/2020) H/O knee surgery (2012) Family History (Updated 02/20/23 @ 08:16 by Shivani Worley RN) Grandfather Hypertension Heart disease Diabetes mellitus Hyperlipidemia Grandmother Hypertension Heart disease Diabetes mellitus Hyperlipidemia Grandmother Cancer History of recurrent miscarriages Grandfather Lung cancer Heavy smoker Aunt Ectopic Social History marital status: details: lives with fiance household members: spouse lives independently: Yes caregiver/support person: No housing: house pets and animals: Yes (dogs, cats) education level: college occupational status: employed current occupational exposures/hazards: Yes (community relations assistant, 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) special alison needs: No travel history: over 6 months ago seatbelt use: always helmet use: Yes water heater temp set < 120 deg: Yes working smoke detector in home: Yes fire extinguisher in home: Yes carbon monox detector in home: Yes firearms in home: Yes firearms unloaded and locked: Yes Smoking Status: Never smoker second hand exposure: No alcohol intake: former substance use type: does not use during the past year weight has: decreased > 10 lbs well-balanced diet: rarely or never daily servings fruits/ve-1 caffeine: Yes (AM cup coffee) Type(s) of exercise: walking and other Meds Home Medications and Allergies Home Medications Medication Instructions Recorded Confirmed Type [id number] 400 mcg-om3 35 mg-dha 25 tab PO 02/20/23 10/09/23 History mg-epa 5 mg-fish oil chewable tablet iron, carbonyl 18 mg iron chewable 18 mg PO DAILY 02/20/23 10/09/23 History tablet (Ferretts Carbonyl Iron) ondansetron 4 mg disintegrating 4 mg PO Q8H PRN nausea and 08/02/23 10/09/23 Rx tablet vomiting #30 tabs nitrofurantoin macrocrystal 100 mg 100 mg PO BID #10 caps 09/11/23 10/09/23 Rx capsule Allergies Allergy/AdvReac Type Severity Reaction Status Date / Time chlorhexidine Allergy Mild Rash Verified 10/09/23 16:09 [From ChloraPrep Clear] venom-honey bee Allergy Mild Hives, Verified 10/09/23 16:09 [bee venom (honey bee)] swelling, itch OB Exam Resp Effort & Inspection: normal respiratory effort Auscultation: clear to auscultation bilaterally Cardio Rate: regular rate Rhythm: regular rhythm Heart Sounds: S1 normal, S2 normal and no murmurs GI Inspection: non-distended Palpation: Yes soft and No tender Presentation: vertex Objective Labs 10/16/23 21:00 Labs: Laboratory Results - last 24 hr 10/16/23 21:00 WBC 8.0 RBC 4.34 Hgb 12.9 Hct 38.2 MCV 88.0 MCH 29.8 MCHC 33.9 RDW 13.8 Plt Count 276 Neut % (Auto) 60.8 Lymph % (Auto) 30.2 Emery % (Auto) 7.9 Eos % (Auto) 0.8 L Baso % (Auto) 0.3 Neut # (Auto) 4900 Lymph # (Auto) 2400 Emery # (Auto) 600 Eos # (Auto) 100 Baso # (Auto) 0 Blood Type A Positive Antibody Screen Negative Assessment and Plan Assessment and Plan Assessment and Plan narrative: 28yo at 41w0d here for post-dates IOL. GBS negative, Rh positive. No complications with . Received cervidil overnight. Minimal cervical change. Aldridge score still not favorable. After informed consent, attempted solano catheter placement without success. Will trial again in 1-2hrs. Pt is juanita regularly. - Expectant management, anticipate - FHT reassuring - GBS negative, no prophylaxis - Will desire epidural in the future - Plan to reattempt solano catheter placement in 1-2hrs Time-Based Coding :: [TOTAL MINUTES] spent with patient and on the chart (including review of chart, obtaining history, exam, reviewing outside data, placing orders, documenting exam and treatment plan, and counseling patient) on [DATE].
[2023-10-17] MEDS: METOCLOPRAMIDE 10 MG/2 ML INJ IV (14:13)
[2023-10-17] MEDS: LACTATED RINGERS 1,000 ML 100 ML IV ×2 (14:26→17:06)
[2023-10-17] MEDS: PROMETHAZINE 25 MG TABLET PO (14:52)
--- NOTE | 2023-10-17 17:18 | PM.AN.REGBLK ---
Regional Block Pre-procedure Procedure: Continuous Lumbar Epidural for L&D Attending OB provider: Genet Conner PMH/ROS narrative: Gerd with PSH/Anesthesia history narrative: wrist and gallbladder- rash with chlorohexadine. Developed after wrist surgery and gall bladder Exam narrative: Healthy woman requesting TAMIA anesthesia. At 4cm. ruptured membranes just prior to epidural placement Labs: Hct 38.2 % (36-46) 10/16/23 21:00 Plt Count 276 X10^3/uL (150-400) 10/16/23 21:00 Medications: Current Medications Generic Name Dose Route Start Last Admin Trade Name Freq PRN Reason Stop Dose Admin Calcium Carbonate 1,000 mg 10/16/23 19:47 Calcium Carbonate 500 Mg Tab PO Q4HR PRN Dyspepsia Carboprost Tromethamine 250 mcg 10/16/23 19:47 Carboprost 250 Mcg/Ml Ampul IM Q90M PRN Bleeding Diphenhydramine HCl 25 mg 10/17/23 15:30 Diphenhydramine 50 Mg/Ml Vial IV 10/18/23 15:31 Q30MIN GLENNA Fentanyl 50 mcg 10/16/23 19:47 10/17/23 12:30 Fentanyl 100 Mcg/2 Ml Inj IV 50 mcg Q1H PRN Administration Pain, Moderate (4-6) Oxytocin/Lactated Ringer's 30 unit in 500 mls @ 200 mls/hr 10/16/23 19:47 Oxytocin Premix IV CONT PRN Bleeding Protocol Tranexamic Acid 1,000 mg/ 100 mls @ 600 mls/hr 10/16/23 19:47 Sodium Chloride IV NOW PRN Bleeding Oxytocin/Lactated Ringer's 30 unit in 500 mls @ 2 mls/hr 10/16/23 20:00 Oxytocin Premix IV TITRATE GLENNA Protocol 2 MILLIUNIT/MIN Lactated Ringer's 1,000 mls @ 100 mls/hr 10/16/23 20:00 10/17/23 17:06 Lactated Ringers IV 100 mls/hr CONT GLENNA Administration Lidocaine HCl 20 ml 10/16/23 19:47 Lidocaine 1% 20 Ml INJ INTRA-OP PRN Post Delivery Methylergonovine Maleate 0.2 mg 10/16/23 19:47 Methylergonovine 0.2 Mg/Ml Vial IM NOW PRN Bleeding Methylergonovine Maleate 0.2 mg 10/16/23 19:47 Methylergonovine 0.2 Mg Tablet PO Q6HR PRN Heavy Bleeding Metoclopramide HCl 10 mg 10/17/23 14:02 10/17/23 14:13 Metoclopramide 10 Mg/2 Ml Inj IV 10 mg Q6HR PRN Administration Nausea And Vomiting Misoprostol 50 mcg 10/16/23 20:00 Misoprostol 25 Mcg Tablet PO Q4H [facility] Misoprostol 400 mcg 10/16/23 19:47 Misoprostol 200 Mcg Tablet SL NOW PRN Bleeding Misoprostol 800 mcg 10/16/23 19:47 Misoprostol 200 Mcg Tablet MA NOW PRN Bleeding Nalbuphine HCl 5 mg 10/17/23 15:28 Nalbuphine 20 Mg/Ml Ampul IV Q6H PRN Pruritus Naloxone HCl 0.2 mg 10/16/23 19:47 Naloxone 0.4 Mg/Ml Vial IV Q2MIN PRN Opiate Reversal Naloxone HCl 0.4 mg 10/17/23 15:28 Naloxone 0.4 Mg/Ml Vial IV Q2MIN PRN Opiate Reversal Ondansetron HCl 4 mg 10/16/23 19:47 10/17/23 12:24 Ondansetron 4 Mg/2 Ml Inj IV 4 mg Q4HR PRN Administration Nausea And Vomiting Ondansetron HCl 4 mg 10/17/23 17:00 Ondansetron 4 Mg/2 Ml Inj IV 10/17/23 21:01 Q4HR [facility] Oxytocin 10 unit 10/16/23 19:47 Oxytocin 10 Unit/Ml Vial IM NOW PRN Bleeding Promethazine HCl 25 mg 10/17/23 14:03 10/17/23 14:52 Promethazine 25 Mg Tablet PO 25 mg Q6HR PRN Administration Nausea Zolpidem Tartrate 5 mg 10/16/23 21:40 10/16/23 23:33 Zolpidem 5 Mg Tablet PO 5 mg BEDTIME PRN Administration Sleep Allergies: Allergies Allergy/AdvReac Type Severity Reaction Status Date / Time chlorhexidine Allergy Mild Rash Verified 10/09/23 16:09 [From ChloraPrep Clear] venom-honey bee Allergy Mild Hives, Verified 10/09/23 16:09 [bee venom (honey bee)] swelling, itch --: Pt complained of left sided paresthesia with Hustead. Redirected slightly right and paresthesia resolved. epidural space located without difficulty Procedure Insertion date: 10/17/23 Insertion time: 16:52 Prep/Local: betadine x3 and 1% lidocaine Interspace: L3-4 Patient position: sitting Needle: [address] Loss of resistance with: saline ZEV at (cm): 7 Catheter placed at SKIN (cm): 13 Catheter in SPACE (cm): 6 Insertion: Yes Paresthesia with insertion Initial Medications TEST DOSE time: 16:54 TEST DOSE: 1.5% lidocaine with epinephrine 1:200k (mL): 3 BOLUS DOSE (mL): 0 Infusion INFUSION: 0.125% bupivacaine and with fentanyl 2 mcg/mL Initial rate (mL/hr): 6 Subsequent interventions: 5cc 0.25% marcaine epidural bolus rate increased to 8cc/hr @0445 10/17 Post-procedure Anesthesia date START: 10/17/23 Anesthesia time START: 16:48 Anesthesia date END: 10/18/23 Anesthesia time END: 14:19 Post-procedure Anesthesia Assessment: Yes CV function: HR/BP stable, Yes Resp function: RR/sat/airway adequate, Yes Post-op hydration adequate, Yes Pain control adequate, Yes Nausea & vomiting absent, Yes Temperature > 36 C and Yes Mental status appropriate
--- NOTE | 2023-10-17 17:51 | PM.OBPNLAB ---
Date/Time Date Patient Seen: 10/17/23 Time Patient Seen: 10:00 Pain Control Pain control: tolerating well Pelvic Exam Dilation (cm): 1 Effacement (%): 40 station: -2 Contractions Contraction intensity: Moderate Status status: Category l Heart Rate Baseline: 140 Monitor Accelerations: Present Monitor Decelerations: Absent Monitor Variability: Moderate Assessment and Plan Comments: Late entry: 28yo at 41w0d here for post-dates IOL. GBS negative, Rh positive. No complications with . Received cervidil overnight. Minimal cervical change. Aldridge score still not favorable. After informed consent, solano placed without complications and inflated with 60cc NS. - Expectant management, anticipate - FHT reassuring - GBS negative, no prophylaxis - Will desire epidural in the future - Continue gentle traction with solano. Remove after 12hrs if doesn't fall out prior.
--- NOTE | 2023-10-17 17:53 | PM.OBPNLAB ---
Date/Time Date Patient Seen: 10/17/23 Time Patient Seen: 04:15 Pelvic Exam Dilation (cm): 4 Effacement (%): 60 station: -2 Contractions Contraction frequency (min): 5 Contraction intensity: Moderate Status status: Category l Heart Rate Baseline: 140 Monitor Accelerations: Present Monitor Decelerations: Absent Monitor Variability: Moderate Assessment and Plan Comments: 28yo at 41w0d here for post-dates IOL. GBS negative, Rh positive. No complications with . Received cervidil overnight. Minimal cervical change. Epstein placed which has now fallen out. After informed consent, AROM performed with clear fluid present. - Expectant management, anticipate - FHT reassuring - Desires epidural for pain control now
--- NOTE | 2023-10-17 17:54 | PM.OBPNLAB ---
Date/Time Date Patient Seen: 10/17/23 Time Patient Seen: 17:54 Pain Control Pain control: epidural Pelvic Exam Dilation (cm): 4 Effacement (%): 60 station: -2 Amniotic membrane status: Ruptured Contractions Monitor mode: Internal Contraction frequency (min): 5 Contraction intensity: Moderate Intrauterine tone measurement: 60 Status status: Category l Heart Rate Baseline: 150 Monitor Accelerations: Present Monitor Decelerations: Absent Monitor Variability: Moderate Assessment and Plan Comments: 28yo at 41w0d here for post-dates IOL. GBS negative, Rh positive. No complications with . Received cervidil overnight. Minimal cervical change. Epstein placed which fell out. AROM performed with clear fluid present. Due to difficulty monitoring contractions, IUPC placed. Inadequate contraction pattern. - Start pitocin and titrate as tolerated to adequate MVUs, anticipate - FHT reassuring - Epidural in place for pain control
[2023-10-17] MEDS: OXYTOCIN PREMIX 30 UNIT/500 ML PLAST..BAG IV (18:10)
--- NOTE | 2023-10-17 21:35 | PM.OBPNLAB ---
Date/Time Date Patient Seen: 10/17/23 Time Patient Seen: 21:35 Pain Control Pain control: epidural Pelvic Exam Dilation (cm): 5 Effacement (%): 70 station: -3 Amniotic membrane status: Ruptured Contractions Monitor mode: Internal Pitocin rate (mU/min): 4 Contraction frequency (min): 5 Contraction intensity: Moderate Intrauterine tone measurement: 200 Status status: Category l Heart Rate Baseline: 140 Monitor Accelerations: Present Monitor Decelerations: Absent Monitor Variability: Moderate Assessment and Plan Comments: 28yo at 41w0d here for post-dates IOL. GBS negative, Rh positive. No complications with . Received cervidil overnight. Minimal cervical change. Epstein placed which fell out. AROM performed with clear fluid present. Due to difficulty monitoring contractions, IUPC placed. Pitocin initiated, now with adequate contraction pattern. Contacted by nursing due to concern for positioning based on FHT on abdomen. Confirmed vertex via bedside u/s, direct OP position. Minimal cervical change. Will continue pitocin, complete position circuit to help encourage rotation of baby. FHT reassuring. Reassess for cervical change in 4hrs.
[2023-10-18] MEDS: LACTATED RINGERS 1,000 ML 100 ML IV (07:36)
[2023-10-18] MEDS: FENT 2MCG/ML BUPIV 0.125% EPI 200 MCG/100 ML PLAST..BAG 6 MCG EPIDURAL (07:36)
--- NOTE | 2023-10-18 09:24 | PM.OBPNLAB ---
Date/Time Date Patient Seen: 10/18/23 Time Patient Seen: 07:45 Pain Control Pain control: epidural Pelvic Exam Dilation (cm): 5 Effacement (%): 80 station: -1 Amniotic membrane status: Ruptured Contractions Monitor mode: Internal Contraction frequency (min): 5 Contraction intensity: Moderate Intrauterine tone measurement: 200 Status status: Category l Heart Rate Baseline: 130 Monitor Accelerations: Present Monitor Decelerations: Absent Monitor Variability: Moderate Assessment and Plan Comments: 28yo at 41w0d here for post-dates IOL. GBS negative, Rh positive. No complications with . Received cervidil the 1st night, then solano placed which fell out. AROM performed with clear fluid present. Due to difficulty monitoring contractions, IUPC placed. Pitocin initiated. No significant cervical change, however does have descent. Discussed with pt that she is not really in active labor yet. Discussed option of continuing with pitocin, as FHT remain reassuring, no evidence of chorioamnioitis vs proceeding with primary . Pt would like to continue with current management. Will work to get contractions closer spaced.
--- NOTE | 2023-10-18 13:16 | PM.OBPNLAB ---
Date/Time Date Patient Seen: 10/18/23 Time Patient Seen: 13:17 Pain Control Pain control: tolerating well and epidural Pelvic Exam Dilation (cm): 5 Effacement (%): 80 station: -1 Amniotic membrane status: Ruptured Contractions Monitor mode: Internal Contraction frequency (min): 2 Contraction intensity: Moderate Status status: Category l Heart Rate Baseline: 130 Monitor Accelerations: Present Monitor Decelerations: Absent Monitor Variability: Moderate Assessment and Plan Comments: 28yo at 41w0d here for post-dates IOL. GBS negative, Rh positive. No complications with . Received cervidil the 1st night, then solano placed which fell out. AROM performed with clear fluid present. Due to difficulty monitoring contractions, IUPC placed. Pitocin initiated. Has now had very adequate contractions for over 5hrs without any significant cervical change. Discussed recommendation for due to failure to progress, which the pt is in agreement with at this time. Discussed risks including but not limited to bleeding/hemorrhage, infection, injury to other organs such as bowel/bladder, injury to fetus. The pt agrees to blood transfusion if medically necessary. Consent was signed and placed in chart. SCDs to be placed prior to delivery. Pt will receive Azithromycin and Ancef prior to surgery.
--- NOTE | 2023-10-18 14:11 | PM.PREOP ---
Pre-operative Note Interval Note History & Physical reviewed/Exam performed by Physician: Yes Changes to H&P: No
--- NOTE | 2023-10-18 15:10 | SUR.OPER ---
Supine on Padded OR bed, head on pillow, safety belt at thigh, arms secured on padded arm boards at <90 degrees abduction. Bump under right buttock. Gel pad to heels, tape over blanket to lower legs. CONFIRMED BY DR. PHAN.
[2023-10-18] MEDS: OXYTOCIN 10 UNIT/ML VIAL IM (15:21)
--- NOTE | 2023-10-18 15:47 | SUR.OPER ---
1514: BABY BOY DELIVERED; APGARS 8 & 9. CORD BLOOD & PLACENTA SENT W\OB RN. FAMILIARN
[2023-10-18 16:15] VITALS: BP 117/79; PULSE 84; RESP 16; TEMP 36.4; O2SAT 100
[2023-10-18 16:20] VITALS: BP 118/74; PULSE 82; RESP 16; O2SAT 100
--- NOTE | 2023-10-18 16:23 | P.OP_ITS ---
Operative Date/Time/Diagnoses Date of procedure: 10/18/23 Time of procedure: 15:00 Pre-op diagnosis: 41w1d gestation GBS negative Rh positive Failure to progress Post-op diagnosis: same Procedure & Clinicians Procedure: Primary Same procedure as scheduled: Yes Indications: Failure to progress Surgeon: Wendy Walters Milling Machine Operator Gear: Yesika Bentley Anesthesia Type: Epidural Operative Notes Findings: Normal uterus, ovaries, and tubes Closure Type: primary Specimen(s): cord blood Intraoperative meds administered: Duramorph, Ketorolac, Pitocin and Tranexamic acid Applied: Catheter Estimated Blood Loss (mL): 900 Procedure in detail: OPERATIVE COURSE: The patient was taken to the operating room where epidural anesthesia was bolused. She was then prepared and draped in the normal sterile fashion in the dorsal supine position with a leftward tilt. Anesthesia was tested and found to be adequate. A Pfannensteil skin incision was then made with the scalpel and carried through to the underlying layer of fascia with the scalpel. The fascia was incised in the midline and the incision extended laterally with the Ulloa scissors. The superior aspect of the fascial incision was then grasped with Lila clamps, elevated with the help of the surgical dental assistant, and the underlying rectus muscles dissected off bluntly and sharply where needed. Attention was then turned to the inferior aspect of the incision which, in a similar fashion, was grasped, tented up with Lila clamps, and the rectus muscle dissected off bluntly and sharply with Ulloa scissors. The rectus muscles were then in the midline, and the peritoneum was identified and entered bluntly. The peritoneal incision was then extended with good visualization of the bladder. Retraction was provided by the surgical dental assistant. The bladder blade was then inserted and the vesicouterine peritoneum identified, grasped with pick-ups and entered sharply with the Metzenbaum scissors. The incision was then extended laterally and the bladder flap created digitally. The bladder blade was then reinserted and the lower uterine segment incised in a transverse fashion with the scalpel, with the surgical dental assistant providing suction. The uterine incision was then extended superolaterally by pulling superolaterally on both sides. Membranes were ruptured and fluid was meconium stained. The bladder blade was removed the 's head was flexed out of LOP position and delivered atraumatically, with fundal pressure by the surgical dental assistant. The nose and mouth were suctioned with bulb suction and the cord was clamped and cut. The was handed off to the waiting nursing staff. Cord blood was collected for Rh status. The placenta was then delivered with gentle cord traction. The uterus was then exteriorized and cleared of all clots and debris. The uterine incision was repaired with O-Vicryl in a running, locked fashion. A second layer of the same suture was used to obtain excellent hemostasis. Significant uterine atony was noted. TXA was administered as well as 10 units intrauterine pitocin, with improvement in tone. The uterus was returned to the abdomen. The gutters were cleared of all clots. Hysterotomy was investigated and found to be hemostatic. Permaclot was placed over the incision. The fascia was reapproximated with O Vicryl in a running fashion. The subcutaneous tissue was reapproximated with 3-O Vicryl. The skin was closed with 4-O Vicryl. The surgical dental assistant helped with retraction during closures. SPONGE AND NEEDLE COUNTS: Correct x3. DRESSING: Aquacel ANTICOAGULATION: SCDs applied prior to Surgery Preop antibiotics given (see MAR). The patient was taken to recovery room having tolerated procedure well. Complications: none Baby 1: Infant Gender: Male Presentation: vertex Position: Left Occiput Posterior Placental Delivery Description: Spontaneous Cord Vessel Description: 3 Vessels score (1 min): 8 score (5 min): 9 weight: 8 lb 13.766 oz Post-operative Condition: stable Disposition: PACU Aftercare: routine postop
[2023-10-18] MEDS: fentaNYL 100 MCG/2 ML INJ 50 MCG IV (16:24)
[2023-10-18 16:25] VITALS: BP 123/81; PULSE 76; RESP 15; O2SAT 100
[2023-10-18 16:30] VITALS: BP 128/87; PULSE 83; RESP 15; O2SAT 100
[2023-10-18 16:35] VITALS: BP 117/81; PULSE 70; RESP 16; O2SAT 100
[2023-10-18] MEDS: HYDROMORPHONE 1 MG INJ IV (16:41)
[2023-10-18 16:45] VITALS: BP 129/89; PULSE 84; RESP 16; O2SAT 98
[2023-10-18] MEDS: KETOROLAC 30 MG/ML VIAL IV ×2 (17:55→22:50)
[2023-10-18] MEDS: ONDANSETRON 4 MG/2 ML INJ IV (20:11)
[2023-10-18] MEDS: HYDROMORPHONE 0.5 MG INJ IV (21:05)
[2023-10-18] MEDS: ACETAMINOPHEN 325 MG TABLET 650 MG PO (23:28)
[2023-10-19] MEDS: KETOROLAC 30 MG/ML VIAL IV ×2 (05:13→10:58)
[2023-10-19] MEDS: ACETAMINOPHEN 325 MG TABLET 650 MG PO ×4 (05:14→23:14)
[2023-10-19 06:31] LABS: Add Manual Diff / Slide Review NO; Basophils Absolute Auto 100 /uL (0-100); Basophils Percent Auto 0.5 % (0-2); Eosinophils Absolute Auto 0 /uL (0-450); Eosinophils Percent Auto 0.1 % (2-4); Hematocrit 32.6 % (36-46); Hemoglobin 11.1 g/dL (12.0-16.0); Lymphocytes Absolute Auto 1300 /uL (1100-4500); Lymphocytes Percent Auto 5.3 % (25-40); Mean Corpuscular Hemoglobin 29.9 PG (26-34); Monocytes Absolute Auto 900 /uL (0-900); Monocytes Percent Auto 3.7 % (3-14); Neutrophils Absolute Auto 21800 /uL (1500-7000); Neutrophils Percent Auto 90.4 % (50-75); Platelet Count 238 X10^3/uL (150-400); Red Cell Distribution Width 14.2 % (11.6-14.8); White Blood Cell Count 24.1 X10^3/uL (4.5-11.0)
--- NOTE | 2023-10-19 09:32 | PM.OBPN.1 ---
Subjective - OB Subjective Date Patient Seen: 10/19/23 Interval history: The pt reports that she is feeling significantly improved from yesterday after surgery. Her pain is well controlled. Her lochia is decreasing appropriately. She has been able to void a small amount, but has not yet passed flatus. She is with good latch, no nipple pain. Exam Vital Signs (past 8 hours): Oxygen Delivery Method Room Air Resp Auscultation: clear to auscultation bilaterally Cardio Rate: regular rate Rhythm: regular rhythm Heart Sounds: S1 normal, S2 normal and no murmurs GI Inspection: non-distended and incision (dressing c/d/i) Palpation: soft, No guarding and tender (appropriately tender) Auscultation: normal bowel sounds Other: fundus firm and below the umbilicus Extrem Right upper extremity: no edema Objective Labs 10/19/23 06:22 Labs: Laboratory Results - last 24 hr 10/19/23 06:22 WBC 24.1 H RBC 3.70 L Hgb 11.1 L Hct 32.6 L MCV 88.0 MCH 29.9 MCHC 34.0 RDW 14.2 Plt Count 238 Neut % (Auto) 90.4 H Lymph % (Auto) 5.3 L [place] % (Auto) 3.7 Eos % (Auto) 0.1 L Baso % (Auto) 0.5 Neut # (Auto) 13121 H Lymph # (Auto) 1300 [place] # (Auto) 900 Eos # (Auto) 0 Baso # (Auto) 100 Assessment & Plan Plan Comments: Pt is a 28yo POD#1 s/p primary for failure to progress without complications. Pt doing well. - Normal care - support - Encourage ambulation today Time-Based Coding :: 15 minutes spent with patient and on the chart (including review of chart, obtaining history, exam, reviewing outside data, placing orders, documenting exam and treatment plan, and counseling patient) on 10/19/23.
[2023-10-19] MEDS: LANOLIN OINT 7 GM 1 APPLIC TOP (10:58)
[2023-10-19] MEDS: DOCUSATE 100 MG CAPSULE PO (10:59)
[2023-10-19] MEDS: IBUPROFEN 600 MG TABLET PO ×2 (17:39→23:14)
[2023-10-19] MEDS: OXYCODONE IR 5 MG TABLET PO (19:00)
[2023-10-19] MEDS: OXYCODONE IR 10 MG TABLET PO (20:38)
[2023-10-20] MEDS: OXYCODONE IR 10 MG TABLET PO (03:35)
[2023-10-20] MEDS: ACETAMINOPHEN 325 MG TABLET 650 MG PO (06:13)
[2023-10-20] MEDS: IBUPROFEN 600 MG TABLET PO (06:13)
--- NOTE | 2023-10-20 09:00 | P.DS_ITS ---
Discharge Providers Provider Date of admission: 10/16/23 19:32 Discharge Date: 10/20/23 Primary care physician: Vitor García MD Consults: 10/18/23 17:34 Consult to Public Health Registrar Routine Comment: Discharge provider: Wendy Walters MD Summary Hospital Course Date Patient Seen: 10/20/23 Diagnoses: 41w1d gestation GBS negative Rh positive Failure to progress Primary Hospital Course: The pt presented for post-dates IOL. The pt received cervidil the 1st night, then solano was placed which fell out. AROM was performed with clear fluid present. Due to difficulty monitoring contractions, IUPC was placed. Pitocin was initiated. After adequate contractions for more than 5 hrs without any cervical change, the decision was made to proceed with primary . During surgery there was uterine atony requiring TXA and intrauterine pitocin to control. The pt delivered a viable baby boy. , there were no complications. At the time of discharge she was voiding, ambulating, and passing flatus without difficulty. Her lochia was decreasing appropriately. Her pain was well controlled. She was with good latch. The will f/u in 6 weeks for check. Peripartum Data Infant Delivery Method: Section Procedures: Primary [place] 1: Gender: Male Disposition of : home Status at Discharge Cognitive/behavioral status at discharge: oriented Functional status at discharge: independent ambulation Overall status at discharge: patient is progressing back to baseline Time Spent with Patient Time attestation: Total time spent providing and/or coordinating discharge services: Objective Labs 10/19/23 06:22 Exam Vital Signs (past 8 hours): Oxygen Delivery Method Room Air Resp Auscultation: clear to auscultation bilaterally Cardio Rate: regular rate Rhythm: regular rhythm Heart Sounds: S1 normal, S2 normal and no murmurs GI Inspection: non-distended and incision (dressing c/d/i) Palpation: soft, No guarding and tender (appropriately tender) Auscultation: normal bowel sounds Other: fundus firm and below the umbilicus Extrem Right upper extremity: no edema Discharge Plan Discharge Plan Patient Disposition: Home Discharge orders & Medications Prescriptions: New acetaminophen 325 mg Tablet 650 mg PO Q6H Qty: 30 0RF docusate sodium 100 mg Capsule 100 mg PO DAILY Qty: 30 0RF ibuprofen 600 mg Tablet 600 mg PO Q6H Qty: 60 0RF Continued [id number] oil 400 mcg-35 mg -25 mg-5 mg tablet,chewable PO Ferretts Carbonyl Iron 18 mg iron tablet,chewable 18 mg PO DAILY Discontinued ondansetron 4 mg tablet,disintegrating 4 mg PO Q8H PRN (Reason: nausea and vomiting) Qty: 30 1RF nitrofurantoin macrocrystal 100 mg capsule 100 mg PO BID Qty: 10 0RF Rx Instructions: must administer with a meal/food No Action oxycodone 5 mg tablet 5 mg PO Q4H PRN (Reason: pain) Qty: 30 0RF Follow up/Referrals: Wendy Walters MD [Physician] - 10/25/23 2:00 pm Vitor García MD [Primary Care Provider] - Diet/Activity/Treatments Diet: Diet as Tolerated and Regular Skin/Wound/Dressing Care Report to your healthcare provider any signs of infection, such as:: chills, fever, increased pain, unusual drainage and unusual redness Visit Report/Discharge Packet Instructions: DI for Stand Alone Forms: Patient Portal/API, Stroke Signs & Symptoms Discharge Data Primary Care Provider: Vitor García Discharges patient from system. Discharge Date/Time: 10/20/23 12:30
[2023-10-20 09:40] VITALS: TEMP 37.3
[2023-10-20] MEDS: OXYCODONE IR 5 MG TABLET PO (09:40)
[2023-10-20] MEDS: DOCUSATE 100 MG CAPSULE PO (09:42)
[2023-10-20] MEDS: PRENATAL VIT,CALC/IRON/FOLIC 1 TABLET 1 TAB PO (09:42)
== END 2023-10-20 12:30 | disposition home or self-care (01) | DRG 788 ==
PROVIDERS: Admitting Provider Family Medicine; Family Provider Family Medicine; PCP Family Medicine; Referring Provider Family Medicine; Visit Provider Family Medicine
PROC: 10D00Z1 Extraction of Products of Conception, Low, Open Approach (ICD-10-PCS; CPT 59514; principal; 2023-10-18 14:00)
DX: O61.0 Failed medical induction of labor (principal); O61.1 Failed instrumental induction of labor; O48.0 Post-term pregnancy; Z3A.41 41 weeks gestation of pregnancy; Z37.0 Single live birth; O62.2 Other uterine inertia
CPT/HCPCS: 36415; 59050; 59200; 85025; 86850; 86900; 86901; G0379; J1170; J1885; J2274; J2405; J2590; J2765; J3010

== ENCOUNTER → 2023-10-27 11:03 | Outpatient (CLI) | payer OTHER, SELFPAY | PROVIDERS: Family Provider Family Medicine; PCP Family Medicine; Referring Provider Family Medicine; Visit Provider Family Medicine | DX: T81.40XA Infection following a procedure, unspecified, initial encounter (principal) | CPT/HCPCS: 87070; 87075; 87077; 87147; 87186; 87205 ==

== ENCOUNTER → 2024-02-07 08:44 | Outpatient (CLI) | payer OTHER, SELFPAY ==
--- NOTE | 2024-02-07 | DI.US.S_ITS ---
PROCEDURE: US ABDOMEN LIMITED INDICATIONS: Right lower quadrant abdominal pain TECHNIQUE: Real-time focused scanning was performed of the abdomen, with image documentation. COMPARISON: [facility], , US ABDOMEN COMPLETE, 11/02/2022, 15:58. FINDINGS: No appendix (either normal or abnormal) is identified on this study. No secondary signs of appendicitis can be seen. No tenderness is elicited when scanning over the right lower quadrant. IMPRESSION: No appendix (either normal or abnormal) is identified on this study. No secondary signs of appendicitis are seen. Dictated by: Donnie Bowman M.D. on 02/07/2024 at 9:29 Approved by: Donnie Bowman M.D. on 02/07/2024 at 9:30
--- NOTE | 2024-02-07 | DI.US.S_ITS ---
PROCEDURE: US TRANSVAGINAL INDICATIONS: Right lower quadrant pain TECHNIQUE: Real-time scanning was performed of the pelvic organs, with image documentation. Additional endovaginal scanning was necessary due to incomplete visualization of the adnexal and endometrial structures by transabdominal scanning. COMPARISON: None. FINDINGS: Uterus: Uterus is anteverted and normal in size at 6.1 x 3.5 x 6 cm. The myometrium is homogeneous. The endometrium measures 6 mm combined thickness. No abnormal vascularity can be seen along the endometrial stripe. Ovaries: The right ovary measures 1.9 x 2.4 x 2.1 cm, with a calculated ovarian volume of 5 cc. The left ovary measures 2.6 x 1.5 x 1.9 cm, with a calculated ovarian volume of 4 cc. The ovaries have a normal sonographic appearance. Less than 12 follicles can be seen in each ovary. No adnexal masses are seen. Normal appearing arterial waveforms are confirmed to each ovary. Other: No pathologic free abdominal or pelvic fluid. IMPRESSION: No imaging explanation is found for this patient's presenting symptoms. Negative for ovarian torsion. Unremarkable pelvic ultrasound. We strive to produce accurate, complete, and clear reports of imaging services. To assist us in improving patient care, this report was composed using standard report templates and voice recognition software. Therefore, it may contain abnormal punctuation, insertions and/or omissions. Occasional wrong-word or sound-alike substitutions may occur. Though we review the report and make efforts to correct it, we do recommend that the report be read carefully in proper context to recognize any text inaccuracies. Dictated by: Donnie Bowman M.D. on 02/07/2024 at 17:56 Approved by: Donnie Bowman M.D. on 02/07/2024 at 17:57
== END ==
PROVIDERS: Family Provider Family Medicine; PCP Family Medicine; Referring Provider Internal Medicine; Visit Provider Internal Medicine
DX: R10.31 Right lower quadrant pain (principal)
CPT/HCPCS: 76705; 76830; 76856; 93975